=== PATIENT | male | born 1950 | race Caucasian/White ===

== ENCOUNTER 2020-05-04 13:29 | Inpatient (IN) | payer OTHER, BC ==
[2020-05-04] MEDS ORDERED: SODIUM CHLORIDE IV ONE (13:50)
[2020-05-04] MEDS ORDERED: LACTATED RINGERS SOLUTION 1000 ML INFUS.BAG IV ONE (13:52)
[2020-05-04] MEDS ORDERED: DEXAMETHASONE SOD PHOSPHATE 10 MG/1 ML VIAL IVPUSH ONE (14:02)
[2020-05-04] MEDS ORDERED: DEXAMETHASONE SOD PHOSPHATE 10 MG/1 ML VIAL ONE (14:18)
[2020-05-04] MEDS ORDERED: CEFTRIAXONE 1,000 MG in DEXTROSE 5%-WATER - 50 ML IVPB ONE (14:23)
[2020-05-04] MEDS ORDERED: AZITHROMYCIN IVPB 500 MG in DEXTROSE 5%-WATER - 250 ML IVPB ONE (14:23)
[2020-05-04 14:27] LABS: BASO % 0.4 % (0-2.0); EOS % 0.2 % (0-4.5); HEMATOCRIT 38.7 % (35.4-49); LYMPH % 9.2 % (8-40); MCH 29.3 pg (25.7-33.7); MCHC 33.6 g/dl (32.0-35.9); MEAN CELL VOLUME 87.3 fl (80-96); MEAN PLT VOLUME 7.8 fl (7.5-11.1); MONO % 5.8 % (3.8-10.2); NEUT % 84.4 % (42.8-82.8); PLATELET COUNT 370 K/MM3 (134-434); RBC 4.43 M/mm3 (4.00-5.60); RDW 12.7 % (11.9-15.9); WHITE BLOOD COUNT 7.7 K/mm3 (4.0-10.0)
[2020-05-04 14:34] LABS: INR 1.33 (0.83-1.09); PROTHROMBIN TIME (PATIENT) 16.2 SEC (9.7-13.0)
[2020-05-04 14:36] LABS: ACTIVATED PTT 31.7 SECONDS (25.2-36.5)
[2020-05-04 14:47] LABS: CHLORIDE 99 mmol/L (98-107); POTASSIUM 5.6 mmol/L (3.5-5.1); SODIUM 130 mmol/L (136-145)
[2020-05-04 14:50] LABS: ALBUMIN 2.8 g/dl (3.4-5.0); ANION GAP 7 MMOL/L (8-16); CALCIUM 8.4 mg/dL (8.5-10.1); CO2 24 mmol/L (21-32); GLUCOSE,RANDOM 169 mg/dL (74-106); LIPASE 270 U/L (73-393); MAGNESIUM 1.6 mg/dL (1.8-2.4)
[2020-05-04] MEDS ORDERED: ACETAMINOPHEN 1000 MG/100 ML VIAL (NON FORMULARY) IVPB ONE (14:50)
[2020-05-04] MEDS ORDERED: ACETAMINOPHEN INJECTION 100 ML IVPB ONE (14:51)
[2020-05-04] MEDS ORDERED: AZITHROMYCIN IVPB 500 MG/250 ML BAG IVPB ONE (14:51)
[2020-05-04] MEDS ORDERED: CEFTRIAXONE 1 GM/50 ML BAG ONE (14:51)
[2020-05-04 14:53] LABS: CREATININE 1.5 mg/dL (0.55-1.3); SGOT/AST 93 U/L (15-37); SGPT/ALT 93 U/L (13-61)
[2020-05-04 14:55] LABS: BILIRUBIN,TOTAL 0.5 mg/dL (0.2-1); TOT PROT 6.8 g/dl (6.4-8.2)
[2020-05-04 14:56] LABS: ALK PHOS 95 U/L (45-117)
[2020-05-04 14:57] LABS: LDH 478 U/L (87-246)
[2020-05-04 16:30] LABS: EPI CELLS 5 /uL (0-25.1); HYALINE CASTS 1 /uL (0-3.1); URINE APPEARANCE CLEAR; URINE BACTERIA 33 /uL (0-1359); URINE BILIRUBIN NEGATIVE (NEGATIVE); URINE COLOR YELLOW; URINE GLUCOSE (UA) NEGATIVE (NEGATIVE); URINE KETONE NEGATIVE (NEGATIVE); URINE LEUK ESTERASE NEGATIVE (NEGATIVE); URINE NITRITE NEGATIVE (NEGATIVE); URINE PROTEIN 1+ (NEGATIVE); URINE RBC 10 /uL (0-23.9); URINE UROBILINOGEN 0.2 mg/dL (0.2-1.0); URINE WBC 10 /uL (0-25.8)
[2020-05-04] MEDS ORDERED: LACTATED RINGERS SOLUTION 1,000 ML/1,000 ML INFUS.BAG IV SCH (18:00)
[2020-05-04] MEDS ORDERED: oxyCODONE HCL 5 MG TABLET PO PRN (20:30)
[2020-05-04] MEDS: SODIUM CHLORIDE 1,000 ML IV SCH (21:32)
[2020-05-04] MEDS ORDERED: APIXABAN 5 MG TABLET ONE (23:16)
[2020-05-04] MEDS: APIXABAN 5 MG TABLET PO SCH (23:35)
[2020-05-04] MEDS: INSULIN SLIDING SCALE (NOVOLOG) 1 VIAL SQ SCH (23:36)
[2020-05-05 02:48] VITALS: BMI 30.9
[2020-05-05 05:04] LABS: VENOUS BASE EXCESS -2.3 mmol/L (-2-2); VENOUS O2 SATURATION 98.6 % (70-80); VENOUS PCO2 30.3 mmHg (38-52); VENOUS PH 7.453 (7.310-7.410)
[2020-05-05 05:10] LABS: POTASSIUM 4.8 mmol/L (3.5-5.1)
[2020-05-05 05:11] LABS: CALCIUM 7.8 mg/dL (8.5-10.1)
[2020-05-05 05:12] LABS: BLOOD UREA NITROGEN 33.7 mg/dL (7-18)
[2020-05-05 05:15] LABS: CREATININE 1.1 mg/dL (0.55-1.3)
[2020-05-05] MEDS: INSULIN SLIDING SCALE (NOVOLOG) 1 VIAL SQ SCH ×4 (06:50→23:12)
[2020-05-05] MEDS ORDERED: cefTRIAXone SODIUM 1 GM VIAL ONE (08:08)
[2020-05-05] MEDS ORDERED: DEXTROSE 5%-WATER - 50 ML IVPB ONE (08:09)
[2020-05-05] MEDS: APIXABAN 5 MG TABLET PO SCH ×3 (08:29→23:12)
[2020-05-05] MEDS: ASCORBIC ACID 500 MG TABLET (FP) PO SCH ×2 (08:29→11:35)
[2020-05-05] MEDS: CEFTRIAXONE 1 GM in DEXTROSE 5%-WATER - 50 ML IVPB SCH ×2 (08:29→11:34)
[2020-05-05] MEDS: AZITHROMYCIN IVPB 500 MG/250 ML BAG IVPB SCH ×2 (08:29→11:35)
[2020-05-05 08:43] LABS: HEMOGLOBIN 11.3 GM/dL (11.7-16.9); MCH 29.6 pg (25.7-33.7); MCHC 34.3 g/dl (32.0-35.9); MEAN CELL VOLUME 86.2 fl (80-96); MEAN PLT VOLUME 7.8 fl (7.5-11.1); PLATELET COUNT 331 K/MM3 (134-434); RBC 3.83 M/mm3 (4.00-5.60); RDW 12.7 % (11.9-15.9); WHITE BLOOD COUNT 6.7 K/mm3 (4.0-10.0)
[2020-05-05 08:53] LABS: POTASSIUM 4.8 mmol/L (3.5-5.1)
[2020-05-05 09:01] LABS: BLOOD UREA NITROGEN 30.4 mg/dL (7-18); CALCIUM 7.8 mg/dL (8.5-10.1)
[2020-05-05 09:02] LABS: MAGNESIUM 1.6 mg/dL (1.8-2.4)
[2020-05-05 09:04] LABS: BILIRUBIN,TOTAL 0.3 mg/dL (0.2-1)
[2020-05-05 09:05] LABS: PHOSPHOROUS 2.5 mg/dL (2.5-4.9); TOT PROT 5.6 g/dl (6.4-8.2)
[2020-05-05 09:46] LABS: ALBUMIN 2.2 g/dl (3.4-5.0)
[2020-05-05] MEDS ORDERED: DEXAMETHASONE 4 MG TABLET (FP) PO SCH (10:00)
[2020-05-05] MEDS ORDERED: ENOXAPARIN NA (PORCINE) 40 MG/0.4 ML DISP.SYRIN SQ SCH (10:00)
[2020-05-05] MEDS ORDERED: MAGNESIUM SULF 50% (8.12 MEQ/2 ML-1 GM VIAL) IVPB ONE ×2 (11:36→17:45)
[2020-05-05] MEDS ORDERED: DEXAMETHASONE 2 MG TABLET PO SCH (11:45)
[2020-05-05] MEDS ORDERED: PT OWN MED DRAWER 7, Y5N ONE (12:57)
[2020-05-05] MEDS: ZINC SULFATE 220 MG CAPSULE (FP) PO SCH (12:59)
[2020-05-05] MEDS: DEXAMETHASONE 4 MG TABLET (FP) PO SCH (13:00)
[2020-05-05] MEDS ORDERED: ACETAMINOPHEN 325 MG TABLET (FP) PO PRN (15:22)
[2020-05-05] MEDS: SODIUM CHLORIDE 1,000 ML IV SCH (23:13)
[2020-05-06] MEDS: INSULIN SLIDING SCALE (NOVOLOG) 1 VIAL SQ SCH ×4 (06:59→21:23)
[2020-05-06] MEDS: SODIUM CHLORIDE 1,000 ML IV SCH ×2 (07:01→21:24)
[2020-05-06 09:57] LABS: BASO % 0.4 % (0-2.0); HEMOGLOBIN 12.6 GM/dL (11.7-16.9); LYMPH % 9.7 % (8-40); MCH 29.1 pg (25.7-33.7); MCHC 33.1 g/dl (32.0-35.9); MONO % 4.6 % (3.8-10.2); NEUT % 85.3 % (42.8-82.8); PLATELET COUNT 500 K/MM3 (134-434); RBC 4.31 M/mm3 (4.00-5.60); RDW 12.8 % (11.9-15.9); WHITE BLOOD COUNT 15.8 K/mm3 (4.0-10.0)
[2020-05-06 10:21] LABS: POTASSIUM 4.6 mmol/L (3.5-5.1)
[2020-05-06 10:34] LABS: ALBUMIN 2.6 g/dl (3.4-5.0); BLOOD UREA NITROGEN 29.4 mg/dL (7-18); CALCIUM 8.5 mg/dL (8.5-10.1)
[2020-05-06 10:38] LABS: MAGNESIUM 1.7 mg/dL (1.8-2.4)
[2020-05-06 10:39] LABS: CREATININE 1.2 mg/dL (0.55-1.3); TOT PROT 6.3 g/dl (6.4-8.2)
[2020-05-06 10:41] LABS: BILIRUBIN,TOTAL 0.4 mg/dL (0.2-1)
[2020-05-06] MEDS: DEXAMETHASONE 4 MG TABLET (FP) PO SCH (11:35)
[2020-05-06] MEDS ORDERED: cefTRIAXone SODIUM 1 GM VIAL ONE (11:37)
[2020-05-06] MEDS ORDERED: DEXTROSE 5%-WATER - 50 ML IVPB ONE (11:37)
[2020-05-06] MEDS: CEFTRIAXONE 1 GM in DEXTROSE 5%-WATER - 50 ML IVPB SCH (11:46)
[2020-05-06] MEDS: ASCORBIC ACID 500 MG TABLET (FP) PO SCH (11:48)
[2020-05-06] MEDS: ZINC SULFATE 220 MG CAPSULE (FP) PO SCH (11:48)
[2020-05-06] MEDS: APIXABAN 5 MG TABLET PO SCH ×2 (11:49→21:23)
[2020-05-06] MEDS: DEXAMETHASONE SOD PHOSPHATE 10 MG/1 ML VIAL IVPUSH SCH (11:49)
[2020-05-06] MEDS: AZITHROMYCIN IVPB 500 MG/250 ML BAG IVPB SCH (11:51)
[2020-05-06] MEDS ORDERED: REMDESIVIR 200 MG in SODIUM CHLORIDE 210 ML IVPB ONE (12:00)
[2020-05-06] MEDS ORDERED: MAGNESIUM SULF 50% (8.12 MEQ/2 ML-1 GM VIAL) IVPB ONE ×2 (12:56→20:15)
[2020-05-06] MEDS ORDERED: INSULIN (NOVOLOG) ASPART 100 UNITS/ML 10ML VIAL ONE (21:07)
[2020-05-07] MEDS: INSULIN SLIDING SCALE (NOVOLOG) 1 VIAL SQ SCH ×4 (06:43→21:01)
[2020-05-07 10:08] LABS: BASO % 0.1 % (0-2.0); HEMATOCRIT 33.1 % (35.4-49); HEMOGLOBIN 11.3 GM/dL (11.7-16.9); LYMPH % 5.5 % (8-40); MCH 29.2 pg (25.7-33.7); MCHC 34.1 g/dl (32.0-35.9); MEAN CELL VOLUME 85.7 fl (80-96); MEAN PLT VOLUME 7.9 fl (7.5-11.1); MONO % 5.1 % (3.8-10.2); NEUT % 89.3 % (42.8-82.8); PLATELET COUNT 464 K/MM3 (134-434); RBC 3.86 M/mm3 (4.00-5.60); RDW 12.8 % (11.9-15.9); WHITE BLOOD COUNT 13.4 K/mm3 (4.0-10.0)
[2020-05-07] MEDS ORDERED: cefTRIAXone SODIUM 1 GM VIAL ONE ×2 (10:25→10:31)
[2020-05-07] MEDS ORDERED: DEXTROSE 5%-WATER - 50 ML IVPB ONE (10:31)
[2020-05-07 10:35] LABS: POTASSIUM 4.4 mmol/L (3.5-5.1)
[2020-05-07 10:39] LABS: BLOOD UREA NITROGEN 36.8 mg/dL (7-18)
[2020-05-07 10:40] LABS: ALBUMIN 2.2 g/dl (3.4-5.0)
[2020-05-07 10:42] LABS: CREATININE 1.1 mg/dL (0.55-1.3)
[2020-05-07 10:43] LABS: PHOSPHOROUS 1.4 mg/dL (2.5-4.9)
[2020-05-07 10:44] LABS: BILIRUBIN,TOTAL 0.7 mg/dL (0.2-1); TOT PROT 5.6 g/dl (6.4-8.2)
[2020-05-07 10:49] LABS: CALCIUM 7.7 mg/dL (8.5-10.1)
[2020-05-07] MEDS: DEXAMETHASONE SOD PHOSPHATE 10 MG/1 ML VIAL IVPUSH SCH (10:52)
[2020-05-07] MEDS: APIXABAN 5 MG TABLET PO SCH ×2 (10:52→21:00)
[2020-05-07] MEDS: ZINC SULFATE 220 MG CAPSULE (FP) PO SCH (10:52)
[2020-05-07] MEDS: CEFTRIAXONE 1 GM in DEXTROSE 5%-WATER - 50 ML IVPB SCH (10:53)
[2020-05-07] MEDS: AZITHROMYCIN IVPB 500 MG/250 ML BAG IVPB SCH (10:53)
[2020-05-07] MEDS: ASCORBIC ACID 500 MG TABLET (FP) PO SCH (10:53)
[2020-05-07] MEDS ORDERED: SODIUM PHOSPHATE - 30 MM in SODIUM CHLORIDE 500 ML IVPB ONE (13:00)
[2020-05-07] MEDS: REMDESIVIR 100 MG in SODIUM CHLORIDE 230 ML IVPB SCH (13:00)
[2020-05-07 13:54] LABS: ARTERIAL BLD GAS O2 SATURATION 97.1 mmHg (95-98); ARTERIAL BLOOD GAS BASE EXCESS -7.8 mmol/L (-2-2); ARTERIAL BLOOD GAS PO2 90.3 mmHg (80-100); ARTERIAL BLOOD GAS pH 7.398 (7.350-7.450)
[2020-05-07 13:55] LABS: ALLENS TEST POSITIVE
[2020-05-07] MEDS ORDERED: TOCILIZUMAB IVPB ONE (14:00)
[2020-05-07] MEDS ORDERED: SODIUM CHLORIDE IVPB ONE (14:00)
[2020-05-07] MEDS ORDERED: ALBUTEROL SO4 2.5/IPRATROPIUM 0.5 INH SOL 3 ML VIAL.NEB. NEB SCH (16:00)
[2020-05-07 16:08] LABS: MYCOPLASMA PNEUMONIAE,IG G AB 731 U/mL (0-99); MYCOPLASMA PNEUMONIAE,IGM AB <770 U/mL (0-769)
[2020-05-07] MEDS: SODIUM CHLORIDE 1,000 ML IV SCH (21:00)
[2020-05-08] MEDS: INSULIN SLIDING SCALE (NOVOLOG) 1 VIAL SQ SCH ×4 (06:10→21:29)
[2020-05-08] MEDS ORDERED: ALBUTEROL SO4 2.5/IPRATROPIUM 0.5 INH SOL 3 ML VIAL.NEB. NEB SCH (08:00)
[2020-05-08 09:30] LABS: BASO % 0.5 % (0-2.0); HEMATOCRIT 28.2 % (35.4-49); HEMOGLOBIN 9.7 GM/dL (11.7-16.9); LYMPH % 12.3 % (8-40); MCH 29.6 pg (25.7-33.7); MCHC 34.5 g/dl (32.0-35.9); MEAN CELL VOLUME 85.7 fl (80-96); MEAN PLT VOLUME 7.9 fl (7.5-11.1); MONO % 5.8 % (3.8-10.2); NEUT % 81.4 % (42.8-82.8); PLATELET COUNT 448 K/MM3 (134-434); RBC 3.29 M/mm3 (4.00-5.60); RDW 12.8 % (11.9-15.9); WHITE BLOOD COUNT 13.4 K/mm3 (4.0-10.0)
[2020-05-08] MEDS ORDERED: cefTRIAXone SODIUM 1 GM VIAL ONE (09:56)
[2020-05-08] MEDS ORDERED: DEXTROSE 5%-WATER - 50 ML IVPB ONE (09:56)
[2020-05-08] MEDS: DEXAMETHASONE SOD PHOSPHATE 10 MG/1 ML VIAL IVPUSH SCH (10:06)
[2020-05-08 10:07] LABS: POTASSIUM 4.1 mmol/L (3.5-5.1)
[2020-05-08] MEDS: APIXABAN 5 MG TABLET PO SCH ×2 (10:07→21:29)
[2020-05-08] MEDS: CEFTRIAXONE 1 GM in DEXTROSE 5%-WATER - 50 ML IVPB SCH (10:07)
[2020-05-08] MEDS: AZITHROMYCIN IVPB 500 MG/250 ML BAG IVPB SCH (10:07)
[2020-05-08] MEDS: ASCORBIC ACID 500 MG TABLET (FP) PO SCH (10:07)
[2020-05-08] MEDS: SODIUM CHLORIDE 1,000 ML IV SCH ×2 (10:07→17:31)
[2020-05-08] MEDS: ZINC SULFATE 220 MG CAPSULE (FP) PO SCH (10:07)
[2020-05-08 10:20] LABS: ALBUMIN 1.9 g/dl (3.4-5.0)
[2020-05-08 10:21] LABS: BLOOD UREA NITROGEN 42.3 mg/dL (7-18)
[2020-05-08 10:24] LABS: CREATININE 0.8 mg/dL (0.55-1.3); PHOSPHOROUS 2.3 mg/dL (2.5-4.9)
[2020-05-08 10:26] LABS: BILIRUBIN,TOTAL 0.6 mg/dL (0.2-1)
[2020-05-08 10:29] LABS: CALCIUM 7.5 mg/dL (8.5-10.1)
[2020-05-08] MEDS ORDERED: ALBUTEROL SO4 HFA INHALER IH PRN (11:11)
[2020-05-08] MEDS ORDERED: INSULIN (NOVOLOG) ASPART 100 UNITS/ML 10ML VIAL ONE ×2 (11:57→16:47)
[2020-05-08] MEDS: REMDESIVIR 100 MG in SODIUM CHLORIDE 230 ML IVPB SCH (12:50)
[2020-05-08 13:37] LABS: IRON SERUM 55 ug/dL (50-175); TOTAL IRON BINDING CAPACITY 143 ug/dL (250-450)
[2020-05-08] MEDS ORDERED: SODIUM CHLORIDE 0.45% 1,000 ML IV SCH (18:00)
[2020-05-08] MEDS ORDERED: POTASSIUM PHOSPHATE 15 MM in SODIUM CHLORIDE 250 ML IVPB ONE (18:30)
[2020-05-09] MEDS: INSULIN SLIDING SCALE (NOVOLOG) 1 VIAL SQ SCH ×4 (06:46→21:51)
[2020-05-09 08:03] LABS: HEMATOCRIT 26.3 % (35.4-49); HEMOGLOBIN 9.2 GM/dL (11.7-16.9); MCH 29.7 pg (25.7-33.7); MCHC 35.2 g/dl (32.0-35.9); MEAN CELL VOLUME 84.4 fl (80-96); MEAN PLT VOLUME 7.7 fl (7.5-11.1); PLATELET COUNT 528 K/MM3 (134-434); RBC 3.11 M/mm3 (4.00-5.60); RDW 12.6 % (11.9-15.9); WHITE BLOOD COUNT 13.7 K/mm3 (4.0-10.0)
[2020-05-09 08:35] LABS: ALBUMIN 1.9 g/dl (3.4-5.0); BLOOD UREA NITROGEN 31.9 mg/dL (7-18); CALCIUM 7.9 mg/dL (8.5-10.1)
[2020-05-09 08:36] LABS: MAGNESIUM 1.6 mg/dL (1.8-2.4)
[2020-05-09] MEDS ORDERED: cefTRIAXone SODIUM 1 GM VIAL ONE (08:37)
[2020-05-09] MEDS ORDERED: DEXTROSE 5%-WATER - 50 ML IVPB ONE (08:37)
[2020-05-09 08:38] LABS: CREATININE 0.8 mg/dL (0.55-1.3); PHOSPHOROUS 2.1 mg/dL (2.5-4.9)
[2020-05-09 08:39] LABS: BILIRUBIN,TOTAL 0.4 mg/dL (0.2-1)
[2020-05-09 08:40] LABS: TOT PROT 4.8 g/dl (6.4-8.2)
[2020-05-09] MEDS ORDERED: MAGNESIUM SULF 50% (8.12 MEQ/2 ML-1 GM VIAL) IVPB ONE (09:30)
[2020-05-09] MEDS ORDERED: POTASSIUM PHOSPHATE 30 MM in SODIUM CHLORIDE 500 ML IVPB ONE (10:00)
[2020-05-09] MEDS: FAMOTIDINE 20 MG/50 ML IVPB 20 MG/50 ML MG IVPB SCH ×2 (10:22→21:50)
[2020-05-09] MEDS: CEFTRIAXONE 1 GM in DEXTROSE 5%-WATER - 50 ML IVPB SCH (10:22)
[2020-05-09] MEDS: ZINC SULFATE 220 MG CAPSULE (FP) PO SCH (10:22)
[2020-05-09] MEDS: DEXAMETHASONE SOD PHOSPHATE 10 MG/1 ML VIAL IVPUSH SCH (10:22)
[2020-05-09] MEDS: APIXABAN 5 MG TABLET PO SCH ×2 (10:22→21:50)
[2020-05-09] MEDS: ASCORBIC ACID 500 MG TABLET (FP) PO SCH (10:22)
[2020-05-09] MEDS: CHOLECALCIFEROL (VIT D3) 1,000 UNIT (25 MCG) TABLET PO SCH (10:24)
[2020-05-09] MEDS: REMDESIVIR 100 MG in SODIUM CHLORIDE 230 ML IVPB SCH (13:23)
[2020-05-09] MEDS: INSULIN (LEVEMIR) 100 UNITS/ML UNITS SQ SCH (21:51)
[2020-05-10] MEDS: INSULIN SLIDING SCALE (NOVOLOG) 1 VIAL SQ SCH ×4 (06:51→21:34)
[2020-05-10 08:52] LABS: BASO % 0.3 % (0-2.0); EOS % 1.7 % (0-4.5); HEMATOCRIT 26.7 % (35.4-49); HEMOGLOBIN 9.5 GM/dL (11.7-16.9); LYMPH % 18.2 % (8-40); MCH 30.5 pg (25.7-33.7); MCHC 35.4 g/dl (32.0-35.9); MONO % 3.2 % (3.8-10.2); NEUT % 76.6 % (42.8-82.8); PLATELET COUNT 613 K/MM3 (134-434); RBC 3.11 M/mm3 (4.00-5.60); RDW 12.8 % (11.9-15.9); WHITE BLOOD COUNT 10.2 K/mm3 (4.0-10.0)
[2020-05-10 08:54] LABS: POTASSIUM 4.1 mmol/L (3.5-5.1)
[2020-05-10 08:56] LABS: BLOOD UREA NITROGEN 29.8 mg/dL (7-18); CALCIUM 7.5 mg/dL (8.5-10.1)
[2020-05-10 09:00] LABS: CREATININE 0.8 mg/dL (0.55-1.3)
[2020-05-10 09:01] LABS: BILIRUBIN,TOTAL 0.4 mg/dL (0.2-1); PHOSPHOROUS 2.5 mg/dL (2.5-4.9); TOT PROT 4.8 g/dl (6.4-8.2)
[2020-05-10 09:04] LABS: MAGNESIUM 1.7 mg/dL (1.8-2.4)
[2020-05-10] MEDS ORDERED: DEXTROSE 5%-WATER - 50 ML IVPB ONE (09:05)
[2020-05-10] MEDS ORDERED: cefTRIAXone SODIUM 1 GM VIAL ONE (09:06)
[2020-05-10] MEDS: ZINC SULFATE 220 MG CAPSULE (FP) PO SCH (09:24)
[2020-05-10] MEDS: CEFTRIAXONE 1 GM in DEXTROSE 5%-WATER - 50 ML IVPB SCH (09:24)
[2020-05-10] MEDS: ASCORBIC ACID 500 MG TABLET (FP) PO SCH (09:24)
[2020-05-10] MEDS: CHOLECALCIFEROL (VIT D3) 1,000 UNIT (25 MCG) TABLET PO SCH (09:24)
[2020-05-10] MEDS: DEXAMETHASONE SOD PHOSPHATE 10 MG/1 ML VIAL IVPUSH SCH (09:24)
[2020-05-10] MEDS: FAMOTIDINE 20 MG/50 ML IVPB 20 MG/50 ML MG IVPB SCH ×2 (09:25→21:34)
[2020-05-10] MEDS ORDERED: MAGNESIUM SULF 50% (8.12 MEQ/2 ML-1 GM VIAL) IVPB ONE (10:29)
[2020-05-10] MEDS: APIXABAN 5 MG TABLET PO SCH ×2 (11:59→21:34)
[2020-05-10] MEDS: REMDESIVIR 100 MG in SODIUM CHLORIDE 230 ML IVPB SCH (12:16)
[2020-05-10] MEDS: AMINO ACIDS/PROTEIN HYDROLYS 30 ML LIQUID.PKT PO SCH (18:39)
[2020-05-10] MEDS: INSULIN (LEVEMIR) 100 UNITS/ML UNITS SQ SCH (21:35)
[2020-05-11] MEDS: INSULIN SLIDING SCALE (NOVOLOG) 1 VIAL SQ SCH ×4 (06:25→22:05)
[2020-05-11] MEDS ORDERED: INSULIN (LEVEMIR) 100 UNITS/ML UNITS SQ SCH (07:14)
[2020-05-11 08:43] LABS: BASO % 0.1 % (0-2.0); EOS % 3.1 % (0-4.5); HEMATOCRIT 30.4 % (35.4-49); HEMOGLOBIN 10.2 GM/dL (11.7-16.9); LYMPH % 8.9 % (8-40); MCH 28.7 pg (25.7-33.7); MCHC 33.4 g/dl (32.0-35.9); MEAN PLT VOLUME 7.7 fl (7.5-11.1); MONO % 2.8 % (3.8-10.2); NEUT % 85.1 % (42.8-82.8); PLATELET COUNT 477 K/MM3 (134-434); RBC 3.53 M/mm3 (4.00-5.60); RDW 12.9 % (11.9-15.9); WHITE BLOOD COUNT 14.6 K/mm3 (4.0-10.0)
[2020-05-11] MEDS ORDERED: cefTRIAXone SODIUM 1 GM VIAL ONE (08:43)
[2020-05-11] MEDS ORDERED: DEXTROSE 5%-WATER - 50 ML IVPB ONE (08:43)
[2020-05-11] MEDS: ASCORBIC ACID 500 MG TABLET (FP) PO SCH (09:30)
[2020-05-11] MEDS: APIXABAN 5 MG TABLET PO SCH ×2 (09:30→22:04)
[2020-05-11] MEDS: CHOLECALCIFEROL (VIT D3) 1,000 UNIT (25 MCG) TABLET PO SCH (09:30)
[2020-05-11] MEDS: ZINC SULFATE 220 MG CAPSULE (FP) PO SCH (09:30)
[2020-05-11] MEDS: AMINO ACIDS/PROTEIN HYDROLYS 30 ML LIQUID.PKT PO SCH ×2 (09:30→17:53)
[2020-05-11] MEDS: DEXAMETHASONE SOD PHOSPHATE 10 MG/1 ML VIAL IVPUSH SCH (09:30)
[2020-05-11] MEDS: FAMOTIDINE 20 MG/50 ML IVPB 20 MG/50 ML MG IVPB SCH ×2 (09:30→22:04)
[2020-05-11] MEDS: MULTIVITAMINS (DAILY MVI) TABLET (FP) PO SCH (09:30)
[2020-05-11] MEDS: CEFTRIAXONE 1 GM in DEXTROSE 5%-WATER - 50 ML IVPB SCH (09:30)
[2020-05-11 09:45] LABS: POTASSIUM 4.3 mmol/L (3.5-5.1)
[2020-05-11 09:52] LABS: ALBUMIN 2.2 g/dl (3.4-5.0); BLOOD UREA NITROGEN 26.1 mg/dL (7-18)
[2020-05-11 09:53] LABS: MAGNESIUM 1.7 mg/dL (1.8-2.4)
[2020-05-11 09:55] LABS: CREATININE 0.8 mg/dL (0.55-1.3)
[2020-05-11 09:56] LABS: PHOSPHOROUS 2.5 mg/dL (2.5-4.9)
[2020-05-11 09:57] LABS: BILIRUBIN,TOTAL 0.5 mg/dL (0.2-1); TOT PROT 5.2 g/dl (6.4-8.2)
[2020-05-11] MEDS ORDERED: MAGNESIUM SULF 50% (8.12 MEQ/2 ML-1 GM VIAL) IVPB ONE (10:00)
[2020-05-11] MEDS: ALBUTEROL SO4 HFA INHALER IH SCH ×4 (10:02→22:23)
[2020-05-11] MEDS: INSULIN (LEVEMIR) 100 UNITS/ML UNITS SQ SCH (22:04)
[2020-05-11] MEDS: MELATONIN 5 MG TABLETS PO SCH (22:04)
[2020-05-12] MEDS: INSULIN SLIDING SCALE (NOVOLOG) 1 VIAL SQ SCH ×4 (06:15→21:14)
[2020-05-12] MEDS ORDERED: ACETAMINOPHEN 325 MG TABLET (FP) PO PRN (08:13)
[2020-05-12] MEDS: AMINO ACIDS/PROTEIN HYDROLYS 30 ML LIQUID.PKT PO SCH ×2 (08:59→17:13)
[2020-05-12 10:16] LABS: BASO % 0.2 % (0-2.0); EOS % 3.6 % (0-4.5); HEMATOCRIT 28.9 % (35.4-49); HEMOGLOBIN 9.7 GM/dL (11.7-16.9); LYMPH % 9.8 % (8-40); MCH 28.9 pg (25.7-33.7); MCHC 33.5 g/dl (32.0-35.9); MEAN CELL VOLUME 86.1 fl (80-96); MONO % 2.7 % (3.8-10.2); NEUT % 83.7 % (42.8-82.8); PLATELET COUNT 396 K/MM3 (134-434); RBC 3.36 M/mm3 (4.00-5.60); RDW 12.9 % (11.9-15.9); WHITE BLOOD COUNT 13.9 K/mm3 (4.0-10.0)
[2020-05-12] MEDS ORDERED: DEXTROSE 5%-WATER - 50 ML IVPB ONE (10:20)
[2020-05-12] MEDS ORDERED: cefTRIAXone SODIUM 1 GM VIAL ONE (10:20)
[2020-05-12] MEDS: CEFTRIAXONE 1 GM in DEXTROSE 5%-WATER - 50 ML IVPB SCH (10:23)
[2020-05-12] MEDS: FAMOTIDINE 20 MG/50 ML IVPB 20 MG/50 ML MG IVPB SCH ×2 (10:23→21:14)
[2020-05-12] MEDS: ASCORBIC ACID 500 MG TABLET (FP) PO SCH (10:24)
[2020-05-12] MEDS: CHOLECALCIFEROL (VIT D3) 1,000 UNIT (25 MCG) TABLET PO SCH (10:24)
[2020-05-12] MEDS: MULTIVITAMINS (DAILY MVI) TABLET (FP) PO SCH (10:24)
[2020-05-12] MEDS: ZINC SULFATE 220 MG CAPSULE (FP) PO SCH (10:24)
[2020-05-12] MEDS: APIXABAN 5 MG TABLET PO SCH ×2 (10:24→21:14)
[2020-05-12] MEDS: ALBUTEROL SO4 HFA INHALER IH SCH ×4 (10:24→21:14)
[2020-05-12] MEDS: DEXAMETHASONE SOD PHOSPHATE 10 MG/1 ML VIAL IVPUSH SCH (10:24)
[2020-05-12 10:36] LABS: POTASSIUM 4.2 mmol/L (3.5-5.1)
[2020-05-12 10:51] LABS: ALBUMIN 2.3 g/dl (3.4-5.0); BLOOD UREA NITROGEN 29.3 mg/dL (7-18); MAGNESIUM 1.8 mg/dL (1.8-2.4)
[2020-05-12 10:54] LABS: CREATININE 0.9 mg/dL (0.55-1.3)
[2020-05-12 10:55] LABS: PHOSPHOROUS 2.4 mg/dL (2.5-4.9)
[2020-05-12 10:56] LABS: BILIRUBIN,TOTAL 0.6 mg/dL (0.2-1); TOT PROT 5.2 g/dl (6.4-8.2)
[2020-05-12] MEDS: INSULIN (LEVEMIR) 100 UNITS/ML UNITS SQ SCH (21:14)
[2020-05-12] MEDS: MELATONIN 5 MG TABLETS PO SCH (21:14)
[2020-05-13] MEDS: INSULIN SLIDING SCALE (NOVOLOG) 1 VIAL SQ SCH ×4 (07:04→22:00)
[2020-05-13] MEDS ORDERED: DEXTROSE 5%-WATER - 50 ML IVPB ONE (09:14)
[2020-05-13] MEDS ORDERED: cefTRIAXone SODIUM 1 GM VIAL ONE (09:14)
[2020-05-13] MEDS: AMINO ACIDS/PROTEIN HYDROLYS 30 ML LIQUID.PKT PO SCH ×3 (09:31→17:56)
[2020-05-13] MEDS: DEXAMETHASONE SOD PHOSPHATE 10 MG/1 ML VIAL IVPUSH SCH (09:32)
[2020-05-13] MEDS: CEFTRIAXONE 1 GM in DEXTROSE 5%-WATER - 50 ML IVPB SCH (09:33)
[2020-05-13] MEDS: APIXABAN 5 MG TABLET PO SCH (09:33)
[2020-05-13] MEDS: ASCORBIC ACID 500 MG TABLET (FP) PO SCH (09:33)
[2020-05-13] MEDS: ZINC SULFATE 220 MG CAPSULE (FP) PO SCH (09:33)
[2020-05-13] MEDS: MULTIVITAMINS (DAILY MVI) TABLET (FP) PO SCH (09:33)
[2020-05-13] MEDS: CHOLECALCIFEROL (VIT D3) 1,000 UNIT (25 MCG) TABLET PO SCH (09:33)
[2020-05-13] MEDS: FAMOTIDINE 20 MG/50 ML IVPB 20 MG/50 ML MG IVPB SCH ×2 (09:34→21:15)
[2020-05-13] MEDS: ALBUTEROL SO4 HFA INHALER IH SCH ×3 (09:34→18:26)
[2020-05-13 10:01] LABS: BASO % 0.2 % (0-2.0); EOS % 2.7 % (0-4.5); HEMATOCRIT 30.5 % (35.4-49); HEMOGLOBIN 10.3 GM/dL (11.7-16.9); LYMPH % 10.1 % (8-40); MCH 29.1 pg (25.7-33.7); MCHC 33.9 g/dl (32.0-35.9); MEAN CELL VOLUME 85.8 fl (80-96); MEAN PLT VOLUME 7.4 fl (7.5-11.1); MONO % 4.8 % (3.8-10.2); NEUT % 82.2 % (42.8-82.8); PLATELET COUNT 423 K/MM3 (134-434); RBC 3.56 M/mm3 (4.00-5.60); RDW 13.2 % (11.9-15.9); WHITE BLOOD COUNT 20.3 K/mm3 (4.0-10.0)
[2020-05-13 10:20] LABS: POTASSIUM 4.2 mmol/L (3.5-5.1)
[2020-05-13 10:25] LABS: CALCIUM 8.6 mg/dL (8.5-10.1)
[2020-05-13 10:26] LABS: ALBUMIN 2.5 g/dl (3.4-5.0); BLOOD UREA NITROGEN 33.4 mg/dL (7-18); MAGNESIUM 1.9 mg/dL (1.8-2.4)
[2020-05-13 10:29] LABS: PHOSPHOROUS 2.7 mg/dL (2.5-4.9)
[2020-05-13 10:30] LABS: BILIRUBIN,TOTAL 0.6 mg/dL (0.2-1); TOT PROT 5.6 g/dl (6.4-8.2)
[2020-05-13 10:55] LABS: ANISOCYTOSIS 0; MACROCYTOSIS 0; PLATELET ESTIMATE NORMAL
[2020-05-13] MEDS ORDERED: HYDROmorphone HCL CARPU-JECT 2 MG/1 ML DISP.SYRIN IVPUSH PRN (12:47)
[2020-05-13] MEDS ORDERED: HYDROmorphone HCl 2 MG/ML VIAL ONE (12:52)
[2020-05-13] MEDS: SODIUM CHLORIDE 1,000 ML IV SCH (13:42)
[2020-05-13] MEDS ORDERED: SODIUM CHLORIDE NASAL SPRAY 44 ML BOTTLE NS PRN (18:17)
[2020-05-13] MEDS ORDERED: PIPERACILLIN/TAZOB 3.375 GM 3.375 GM in DEXTROSE 5%-WATER - 50 ML IVPB SCH (19:00)
[2020-05-13] MEDS ORDERED: ENOXAPARIN NA (PORCINE) 80 MG/0.8 ML DISP.SYRIN SQ SCH (21:00)
[2020-05-13] MEDS: MELATONIN 5 MG TABLETS PO SCH (21:15)
[2020-05-13] MEDS: HYDROmorphone HCl 2 MG/ML VIAL IVPUSH PRN (21:15)
[2020-05-13] MEDS: INSULIN (LEVEMIR) 100 UNITS/ML UNITS SQ SCH ×2 (21:51→22:00)
[2020-05-14] MEDS ORDERED: IOHEXOL 300 MG/ML INFUS..BTL IV ONE
[2020-05-14] MEDS: HYDROmorphone HCl 2 MG/ML VIAL IVPUSH PRN ×2 (00:28→21:23)
[2020-05-14 07:25] LABS: HEMATOCRIT 26.2 % (35.4-49); MCH 29.4 pg (25.7-33.7); MCHC 34.3 g/dl (32.0-35.9); MEAN CELL VOLUME 85.8 fl (80-96); MEAN PLT VOLUME 7.4 fl (7.5-11.1); PLATELET COUNT 366 K/MM3 (134-434); RBC 3.05 M/mm3 (4.00-5.60); RDW 13.4 % (11.9-15.9); WHITE BLOOD COUNT 16.3 K/mm3 (4.0-10.0)
[2020-05-14 07:33] LABS: POTASSIUM 5.3 mmol/L (3.5-5.1)
[2020-05-14 07:35] LABS: CALCIUM 8.3 mg/dL (8.5-10.1)
[2020-05-14 07:36] LABS: BLOOD UREA NITROGEN 30.9 mg/dL (7-18)
[2020-05-14 07:37] LABS: MAGNESIUM 1.9 mg/dL (1.8-2.4)
[2020-05-14 07:39] LABS: CREATININE 0.9 mg/dL (0.55-1.3); PHOSPHOROUS 2.8 mg/dL (2.5-4.9)
[2020-05-14] MEDS: DEXAMETHASONE SOD PHOSPHATE 10 MG/1 ML VIAL IVPUSH SCH (10:32)
[2020-05-14] MEDS: ENOXAPARIN NA (PORCINE) 100 MG/1 ML DISP.SYRIN SQ SCH ×2 (10:32→21:27)
[2020-05-14] MEDS: ZINC SULFATE 220 MG CAPSULE (FP) PO SCH (10:32)
[2020-05-14] MEDS: AMINO ACIDS/PROTEIN HYDROLYS 30 ML LIQUID.PKT PO SCH ×2 (10:32→16:43)
[2020-05-14] MEDS: ASCORBIC ACID 500 MG TABLET (FP) PO SCH (10:33)
[2020-05-14] MEDS: CHOLECALCIFEROL (VIT D3) 1,000 UNIT (25 MCG) TABLET PO SCH (10:33)
[2020-05-14] MEDS: MULTIVITAMINS (DAILY MVI) TABLET (FP) PO SCH (10:33)
[2020-05-14] MEDS: FAMOTIDINE 20 MG/50 ML IVPB 20 MG/50 ML MG IVPB SCH ×2 (10:33→22:50)
[2020-05-14] MEDS: INSULIN SLIDING SCALE (NOVOLOG) 1 VIAL SQ SCH ×3 (12:17→21:27)
[2020-05-14] MEDS: ALBUTEROL SO4 HFA INHALER IH SCH ×4 (12:18→21:26)
[2020-05-14] MEDS: BUDESONIDE/FORMETEROL FUMARATE 160/4.5 mcg INHALER IH SCH ×2 (13:00→21:24)
[2020-05-14] MEDS ORDERED: LIDOCAINE HCL 1%, 10 MG/ML (20ML VIAL) ONE (13:31)
[2020-05-14] MEDS ORDERED: HEPARIN NA (PORCINE) 5,000 UNITS/ML 1ML VIAL ONE (13:31)
[2020-05-14] MEDS ORDERED: NITROGLYCERIN 50 MG/10 ML VIAL IVPB ONE (15:04)
[2020-05-14] MEDS ORDERED: MIDAZOLAM HCL 2 MG/2 ML SINGLE DOSE VIAL ONE ×2 (16:22→19:47)
[2020-05-14] MEDS: SODIUM CHLORIDE 1,000 ML IV SCH (18:11)
[2020-05-14] MEDS: SODIUM ZIRCONIUM CYCLOSILICATE (LOKELMA) 5 GM PACKET PO SCH (19:00)
[2020-05-14] MEDS ORDERED: ceFAZolin SODIUM 1 GM VIAL IVPB ONE (19:08)
[2020-05-14] MEDS ORDERED: LIDOCAINE HCL 1% PRESERVATIVE FREE - 30ML VIAL IJ ONE ×2 (19:09)
[2020-05-14] MEDS ORDERED: HEPARIN NA (PORCINE) 5,000 UNITS/ML 1ML VIAL IV ONE ×2 (19:09)
[2020-05-14] MEDS ORDERED: KETAMINE HCL 200 MG/20 ML VIAL ONE (19:09)
[2020-05-14] MEDS ORDERED: ALTEPLASE (CATHFLO) 25 MG in SODIUM CHLORIDE 250 ML CVP ONE ×2 (19:45→22:15)
[2020-05-14] MEDS ORDERED: HEPARIN INFUSION - 25,000 UNITS/500 ML INFUS.BAG IVPB ONE (19:49)
[2020-05-14] MEDS ORDERED: HYDROmorphone HCl 2 MG/ML VIAL IVPUSH PRN (21:14)
[2020-05-14] MEDS: MELATONIN 5 MG TABLETS PO SCH (21:24)
[2020-05-14] MEDS: INSULIN (LEVEMIR) 100 UNITS/ML UNITS SQ SCH (21:30)
[2020-05-14] MEDS ORDERED: SODIUM CHLORIDE 1,000 ML IV SCH (22:15)
[2020-05-14] MEDS ORDERED: HEPARIN SOD,PORK IN 0.45% NACL 25,000 UNITS/500 ML INFUS.BAG IVPB SCH (22:15)
[2020-05-14] MEDS ORDERED: morphine SULFATE 4 MG/ML VIAL IVPUSH PRN (22:15)
[2020-05-15 03:25] LABS: HEMATOCRIT 21.8 % (35.4-49); HEMOGLOBIN 7.2 GM/dL (11.7-16.9); MCH 28.8 pg (25.7-33.7); MCHC 33.1 g/dl (32.0-35.9); MEAN CELL VOLUME 87.2 fl (80-96); MEAN PLT VOLUME 8.4 fl (7.5-11.1); PLATELET COUNT 349 K/MM3 (134-434); RDW 13.4 % (11.9-15.9); WHITE BLOOD COUNT 21.8 K/mm3 (4.0-10.0)
[2020-05-15 03:52] LABS: CALCIUM 7.6 mg/dL (8.5-10.1)
[2020-05-15 03:53] LABS: BLOOD UREA NITROGEN 32.9 mg/dL (7-18)
[2020-05-15 03:56] LABS: CREATININE 0.7 mg/dL (0.55-1.3)
[2020-05-15 03:58] LABS: BILIRUBIN,TOTAL 0.4 mg/dL (0.2-1); TOT PROT 4.6 g/dl (6.4-8.2)
[2020-05-15 04:06] LABS: POTASSIUM 4.3 mmol/L (3.5-5.1)
[2020-05-15] MEDS: INSULIN SLIDING SCALE (NOVOLOG) 1 VIAL SQ SCH ×4 (06:22→23:23)
[2020-05-15] MEDS: AMINO ACIDS/PROTEIN HYDROLYS 30 ML LIQUID.PKT PO SCH ×2 (07:38→16:32)
[2020-05-15] MEDS ORDERED: LIDOCAINE HCL 1%, 10 MG/ML (20ML VIAL) ONE ×2 (07:54→15:19)
[2020-05-15 08:53] LABS: BASO % 0.3 % (0-2.0); EOS % 0.8 % (0-4.5); HEMATOCRIT 19.8 % (35.4-49); LYMPH % 11.4 % (8-40); MCH 28.8 pg (25.7-33.7); MCHC 33.5 g/dl (32.0-35.9); MEAN CELL VOLUME 85.8 fl (80-96); MEAN PLT VOLUME 7.4 fl (7.5-11.1); MONO % 6.7 % (3.8-10.2); NEUT % 80.8 % (42.8-82.8); PLATELET COUNT 372 K/MM3 (134-434); RBC 2.31 M/mm3 (4.00-5.60); RDW 13.9 % (11.9-15.9); WHITE BLOOD COUNT 23.2 K/mm3 (4.0-10.0)
[2020-05-15 08:54] LABS: INR 1.42 (0.83-1.09)
[2020-05-15 08:56] LABS: ACTIVATED PTT 33.4 SECONDS (25.2-36.5)
[2020-05-15 08:59] LABS: MAGNESIUM 1.8 mg/dL (1.8-2.4)
[2020-05-15 09:03] LABS: PHOSPHOROUS 2.2 mg/dL (2.5-4.9)
[2020-05-15 09:05] LABS: HEMOGLOBIN 6.6 GM/dL (11.7-16.9)
[2020-05-15] MEDS ORDERED: ALTEPLASE 2 MG VIAL CVP ONE ×2 (09:11→10:00)
[2020-05-15 09:16] LABS: BILIRUBIN,TOTAL 0.4 mg/dL (0.2-1); BLOOD UREA NITROGEN 45.8 mg/dL (7-18); CALCIUM 7.7 mg/dL (8.5-10.1); CREATININE 0.8 mg/dL (0.55-1.3); POTASSIUM 4.5 mmol/L (3.5-5.1); TOT PROT 4.4 g/dl (6.4-8.2)
[2020-05-15] MEDS: FAMOTIDINE 20 MG/50 ML IVPB 20 MG/50 ML MG IVPB SCH (10:09)
[2020-05-15] MEDS: DEXAMETHASONE SOD PHOSPHATE 10 MG/1 ML VIAL IVPUSH SCH (10:10)
[2020-05-15] MEDS: ALBUTEROL SO4 HFA INHALER IH SCH ×4 (10:11→22:01)
[2020-05-15] MEDS: BUDESONIDE/FORMETEROL FUMARATE 160/4.5 mcg INHALER IH SCH ×2 (10:12→22:01)
[2020-05-15] MEDS ORDERED: ALTEPLASE 50MG 25 MG in SODIUM CHLORIDE 250 ML IVPB ONE (10:15)
[2020-05-15] MEDS ORDERED: ALTEPLASE 50MG 25 MG in SODIUM CHLORIDE 225 ML IVPB ONE (10:15)
[2020-05-15 10:24] LABS: ANISOCYTOSIS 2+; MACROCYTOSIS 0; PLATELET ESTIMATE NORMAL
[2020-05-15] MEDS ORDERED: PANTOPRAZOLE SODIUM 40 MG VIAL IVPUSH ONE (10:39)
[2020-05-15] MEDS: ZINC SULFATE 220 MG CAPSULE (FP) PO SCH (10:57)
[2020-05-15] MEDS: MULTIVITAMINS (DAILY MVI) TABLET (FP) PO SCH (10:57)
[2020-05-15] MEDS: ASCORBIC ACID 500 MG TABLET (FP) PO SCH (10:58)
[2020-05-15] MEDS: SODIUM ZIRCONIUM CYCLOSILICATE (LOKELMA) 5 GM PACKET PO SCH (10:59)
[2020-05-15] MEDS: CHOLECALCIFEROL (VIT D3) 1,000 UNIT (25 MCG) TABLET PO SCH (10:59)
[2020-05-15] MEDS ORDERED: ACETAMINOPHEN 1000 MG/100 ML VIAL (NON FORMULARY) IVPB PRN (11:15)
[2020-05-15] MEDS: PANTOPRAZOLE SODIUM 80 MG in SODIUM CHLORIDE 100 ML IVPB SCH (13:00)
[2020-05-15] MEDS: SODIUM CHLORIDE 1,000 ML IV SCH (13:20)
[2020-05-15] MEDS ORDERED: dilTIAZem HCL 50 MG/10 ML - 10 ML VIAL IVPUSH PRN (13:21)
[2020-05-15] MEDS ORDERED: SODIUM CHLORIDE 500 ML IV STA (14:20)
[2020-05-15] MEDS ORDERED: SODIUM CHLORIDE 250 ML IV STA (14:23)
[2020-05-15 15:06] LABS: N-TERMINAL BNP 378.8 pg/ml (5-125)
[2020-05-15] MEDS ORDERED: HEPARIN NA (PORCINE) 5,000 UNITS/ML 1ML VIAL ONE ×2 (15:19→16:36)
[2020-05-15] MEDS ORDERED: PROPOFOL 20 ML ONE ×3 (16:07→17:03)
[2020-05-15] MEDS ORDERED: HEPARIN NA (PORCINE) 5,000 UNITS/ML 1ML VIAL IVPUSH ONE (16:15)
[2020-05-15] MEDS ORDERED: LIDOCAINE HCL 1% PRESERVATIVE FREE - 30ML VIAL IJ ONE (16:15)
[2020-05-15] MEDS ORDERED: IOHEXOL 300 MG/ML INFUS..BTL IV ONE (16:16)
[2020-05-15] MEDS ORDERED: ceFAZolin SODIUM 1 GM VIAL ONE (16:20)
[2020-05-15] MEDS ORDERED: HEPARIN NA (PORCINE) 5,000 UNITS/ML 1ML VIAL IVPUSH PRN ×2 (18:13)
[2020-05-15] MEDS ORDERED: HEPARIN - 25,000 UNIT in SODIUM CHLORIDE 495 ML IV SCH (18:15)
[2020-05-15 19:21] LABS: BASO % 0.1 % (0-2.0); EOS % 0.2 % (0-4.5); HEMATOCRIT 26.9 % (35.4-49); HEMOGLOBIN 8.9 GM/dL (11.7-16.9); LYMPH % 7.9 % (8-40); MCH 29.5 pg (25.7-33.7); MEAN CELL VOLUME 89.4 fl (80-96); MEAN PLT VOLUME 7.9 fl (7.5-11.1); MONO % 4.6 % (3.8-10.2); NEUT % 87.2 % (42.8-82.8); PLATELET COUNT 321 K/MM3 (134-434); RDW 13.9 % (11.9-15.9)
[2020-05-15 19:24] LABS: WHITE BLOOD COUNT 33.1 K/mm3 (4.0-10.0)
[2020-05-15] MEDS ORDERED: ALPRAZolam 0.25 MG TABLET PO ONE (21:33)
[2020-05-15] MEDS: MELATONIN 5 MG TABLETS PO SCH (22:00)
[2020-05-15] MEDS ORDERED: PANTOPRAZOLE SODIUM 40 MG VIAL IVPUSH SCH (22:00)
[2020-05-15] MEDS ORDERED: CHLORHEXIDINE GLUCONATE 4% CLEANSER FOR DECOLONIZATION TP SCH (22:00)
[2020-05-15] MEDS: MUPIROCIN 2% TOPICAL OINTMENT FOR DECOLONIZATION NS SCH (22:01)
[2020-05-15] MEDS: INSULIN (LEVEMIR) 100 UNITS/ML UNITS SQ SCH (22:02)
[2020-05-15 22:35] LABS: ANISOCYTOSIS 2+; MACROCYTOSIS 0; PLATELET ESTIMATE NORMAL
[2020-05-15] MEDS ORDERED: METOPROLOL TARTRATE 5 MG/5 ML VIAL IVPUSH ONE (23:01)
[2020-05-15 23:35] LABS: HEMATOCRIT 24.1 % (35.4-49); HEMOGLOBIN 7.8 GM/dL (11.7-16.9); MCH 28.8 pg (25.7-33.7); MCHC 32.4 g/dl (32.0-35.9); MEAN CELL VOLUME 88.9 fl (80-96); MEAN PLT VOLUME 7.9 fl (7.5-11.1); PLATELET COUNT 316 K/MM3 (134-434); RBC 2.71 M/mm3 (4.00-5.60); RDW 13.9 % (11.9-15.9)
[2020-05-15 23:37] LABS: WHITE BLOOD COUNT 48.8 K/mm3 (4.0-10.0)
[2020-05-15] MEDS ORDERED: dilTIAZem HCL 50 MG/10 ML - 10 ML VIAL IVPUSH ONE (23:48)
[2020-05-15 23:59] LABS: CHLORIDE 113 mmol/L (98-107); POTASSIUM 4.6 mmol/L (3.5-5.1); SODIUM 142 mmol/L (136-145)
[2020-05-16 00:01] LABS: ANION GAP 7 MMOL/L (8-16); BLOOD UREA NITROGEN 61.6 mg/dL (7-18); CALCIUM 7.6 mg/dL (8.5-10.1); CO2 22 mmol/L (21-32); GLUCOSE,RANDOM 229 mg/dL (74-106); MAGNESIUM 1.9 mg/dL (1.8-2.4)
[2020-05-16 00:05] LABS: CREATININE 1.1 mg/dL (0.55-1.3); PHOSPHOROUS 2.1 mg/dL (2.5-4.9)
[2020-05-16] MEDS: PANTOPRAZOLE SODIUM 80 MG in SODIUM CHLORIDE 100 ML IVPB SCH ×2 (00:49→09:05)
[2020-05-16] MEDS ORDERED: DILTIAZEM INJECTION 125 MG in SODIUM CHLORIDE 100 ML IVPB SCH (02:30)
[2020-05-16 02:41] LABS: BASO % 0.1 % (0-2.0); EOS % 0.1 % (0-4.5); HEMATOCRIT 22.3 % (35.4-49); HEMOGLOBIN 7.1 GM/dL (11.7-16.9); LYMPH % 8.5 % (8-40); MCH 28.3 pg (25.7-33.7); MCHC 31.7 g/dl (32.0-35.9); MEAN CELL VOLUME 89.1 fl (80-96); MEAN PLT VOLUME 7.9 fl (7.5-11.1); NEUT % 85.3 % (42.8-82.8); PLATELET COUNT 305 K/MM3 (134-434); RDW 14.1 % (11.9-15.9)
[2020-05-16 02:44] LABS: WHITE BLOOD COUNT 49.7 K/mm3 (4.0-10.0)
[2020-05-16 05:02] LABS: ANISOCYTOSIS 2+; MACROCYTOSIS 0; PLATELET ESTIMATE NORMAL
[2020-05-16] MEDS: INSULIN SLIDING SCALE (NOVOLOG) 1 VIAL SQ SCH ×2 (06:15→11:43)
[2020-05-16] MEDS ORDERED: TAMSULOSIN HCL 0.4 MG CAP PO SCH (08:30)
[2020-05-16] MEDS: AMINO ACIDS/PROTEIN HYDROLYS 30 ML LIQUID.PKT PO SCH (09:05)
[2020-05-16] MEDS: ZINC SULFATE 220 MG CAPSULE (FP) PO SCH (09:06)
[2020-05-16] MEDS: SODIUM ZIRCONIUM CYCLOSILICATE (LOKELMA) 5 GM PACKET PO SCH (09:06)
[2020-05-16] MEDS: ASCORBIC ACID 500 MG TABLET (FP) PO SCH (09:07)
[2020-05-16] MEDS: MULTIVITAMINS (DAILY MVI) TABLET (FP) PO SCH (09:07)
[2020-05-16] MEDS: CHOLECALCIFEROL (VIT D3) 1,000 UNIT (25 MCG) TABLET PO SCH (09:07)
[2020-05-16] MEDS: DEXAMETHASONE SOD PHOSPHATE 10 MG/1 ML VIAL IVPUSH SCH (09:08)
[2020-05-16] MEDS: BUDESONIDE/FORMETEROL FUMARATE 160/4.5 mcg INHALER IH SCH (09:15)
[2020-05-16] MEDS: MUPIROCIN 2% TOPICAL OINTMENT FOR DECOLONIZATION NS SCH (09:16)
[2020-05-16] MEDS: ALBUTEROL SO4 HFA INHALER IH SCH ×2 (09:16→13:33)
[2020-05-16] MEDS ORDERED: ROSUVASTATIN CA 10 MG TABLET (FP) PO SCH (10:00)
[2020-05-16] MEDS ORDERED: ASPIRIN COATED 81 MG TABLET.EC PO SCH (10:00)
[2020-05-16 11:48] LABS: BASO % 0.2 % (0-2.0); HEMATOCRIT 31.5 % (35.4-49); HEMOGLOBIN 10.3 GM/dL (11.7-16.9); MCH 29.4 pg (25.7-33.7); MCHC 32.8 g/dl (32.0-35.9); MEAN CELL VOLUME 89.6 fl (80-96); MEAN PLT VOLUME 8.8 fl (7.5-11.1); MONO % 5.2 % (3.8-10.2); NEUT % 86.6 % (42.8-82.8); PLATELET COUNT 243 K/MM3 (134-434); RBC 3.51 M/mm3 (4.00-5.60); RDW 13.7 % (11.9-15.9)
[2020-05-16] MEDS ORDERED: VANCOMYCIN 1 GM in D5W (PRE-DOCKED) 1,000 MG/250 ML IVPB ONE (12:24)
[2020-05-16] MEDS ORDERED: PIPERACILLIN/TAZOB 3.375 GM 3.375 GM in DEXTROSE 5%-WATER - 50 ML IVPB ONE (12:24)
[2020-05-16] MEDS ORDERED: LACTATED RINGERS SOLUTION 1000 ML INFUS.BAG IV ONE (12:47)
[2020-05-16] MEDS: SODIUM CHLORIDE 1,000 ML IV SCH (13:02)
[2020-05-16] MEDS ORDERED: DEXTROSE 5%-WATER - 50 ML IVPB ONE (13:04)
[2020-05-16] MEDS ORDERED: PIPERACILLIN/TAZOBACTAM 3.375 GM VIAL IVPB ONE (13:04)
[2020-05-16 13:31] LABS: CHLORIDE 112 mmol/L (98-107); SODIUM 142 mmol/L (136-145)
[2020-05-16 13:33] LABS: CALCIUM 7.6 mg/dL (8.5-10.1)
[2020-05-16 13:34] LABS: ALBUMIN 2.1 g/dl (3.4-5.0); ANION GAP 11 MMOL/L (8-16); BLOOD UREA NITROGEN 77.8 mg/dL (7-18); CO2 18 mmol/L (21-32); GLUCOSE,RANDOM 270 mg/dL (74-106)
[2020-05-16 13:36] LABS: CREATININE 1.6 mg/dL (0.55-1.3)
[2020-05-16 13:37] LABS: PHOSPHOROUS 3.2 mg/dL (2.5-4.9); SGOT/AST 68 U/L (15-37); SGPT/ALT 44 U/L (13-61)
[2020-05-16 13:38] LABS: BILIRUBIN,TOTAL 0.8 mg/dL (0.2-1); TOT PROT 4.3 g/dl (6.4-8.2)
[2020-05-16 13:40] LABS: ALK PHOS 61 U/L (45-117)
[2020-05-16] MEDS ORDERED: SODIUM CHLORIDE 500 ML IV STA (14:17)
[2020-05-16 14:47] VITALS: BP 132/71; PULSE 126; TEMP 97.9
[2020-05-16 14:56] LABS: ANISOCYTOSIS 1+; MACROCYTOSIS 0; PLATELET ESTIMATE NORMAL
[2020-05-16] MEDS ORDERED: SODIUM CHLORIDE 250 ML IV STA (15:30)
== END 2020-05-16 16:03 | disposition short-term general hospital (02) | DRG 981 ==
LOC: JER 13:29 → JERBED 15:23 → J6S 05-05 01:10 → J6WEST-2 05-08 17:52 → JICU 05-13 12:22
PROVIDERS: ADMIT Internal Medicine; ATTEND Internal Medicine Pulmonary Disease
PROC: XW033E5 Introduction of Remdesivir Anti-infective into Peripheral Vein, Percutaneous Approach, New Technology Group 5 (ICD-10-PCS; 2020-05-06)
PROC: XW13325 Transfusion of Convalescent Plasma (Nonautologous) into Peripheral Vein, Percutaneous Approach, New Technology Group 5 (ICD-10-PCS; 2020-05-07)
PROC: B40DYZZ Plain Radiography of Aorta and Bilateral Lower Extremity Arteries using Other Contrast (ICD-10-PCS; 2020-05-14)
PROC: XW13325 Transfusion of Convalescent Plasma (Nonautologous) into Peripheral Vein, Percutaneous Approach, New Technology Group 5 (ICD-10-PCS; 2020-05-14)
PROC: 3E03317 Introduction of Other Thrombolytic into Peripheral Vein, Percutaneous Approach (ICD-10-PCS; principal; 2020-05-14 17:00)
PROC: 047R3ZZ Dilation of Right Posterior Tibial Artery, Percutaneous Approach (ICD-10-PCS; 2020-05-15)
PROC: 3E05317 Introduction of Other Thrombolytic into Peripheral Artery, Percutaneous Approach (ICD-10-PCS; 2020-05-15)
PROC: 3E05317 Introduction of Other Thrombolytic into Peripheral Artery, Percutaneous Approach (ICD-10-PCS; 2020-05-15)
PROC: B50BYZZ Plain Radiography of Right Lower Extremity Veins using Other Contrast (ICD-10-PCS; 2020-05-15)
PROC: 30233N1 Transfusion of Nonautologous Red Blood Cells into Peripheral Vein, Percutaneous Approach (ICD-10-PCS; 2020-05-15)
DX: U07.1 COVID-19 (principal); J12.82 Pneumonia due to coronavirus disease 2019; J96.01 Acute respiratory failure with hypoxia; E87.1 Hypo-osmolality and hyponatremia; D62 Acute posthemorrhagic anemia; D68.59 Other primary thrombophilia; K92.2 Gastrointestinal hemorrhage, unspecified; N17.9 Acute kidney failure, unspecified; I74.09 Other arterial embolism and thrombosis of abdominal aorta; I10 Essential (primary) hypertension; E11.9 Type 2 diabetes mellitus without complications; E83.42 Hypomagnesemia; R50.9 Fever, unspecified; I44.0 Atrioventricular block, first degree; E87.5 Hyperkalemia; M54.5 Low back pain; R19.7 Diarrhea, unspecified; E66.9 Obesity, unspecified; Z68.29 Body mass index [BMI] 29.0-29.9, adult; E11.51 Type 2 diabetes mellitus with diabetic peripheral angiopathy without gangrene; R74.01 Elevation of levels of liver transaminase levels; I99.8 Other disorder of circulatory system; E86.0 Dehydration
CPT/HCPCS: 36415; 36430; 36600; 71045-TC-FY; 75635-TC; 76000-TC-FY; 80048; 80053; 80061; 81003; 82272; 82550; 82553; 82728; 82803; 82962; 83036; 83540; 83550; 83605; 83615; 83690; 83721; 83735; 83880; 84100; 84443; 84466; 84484; 85025; 85027; 85045; 85379; 85384; 85610; 85730; 86140; 86738; 86769; 86850; 86900; 86901; 86922; 87040; 87086; 87804; 87899; 93005; 93010; 93306-TC; 93970-TC; 94010; 94640; 97116-GP; 97161-GP; 99285-25; C9399; C9803; J0131; J1100; J1644; J2997; J3262; P9017; P9058; Q9967; U0003